=== PATIENT | male | born 1980 | race Caucasian/White ===

== ENCOUNTER 2016-08-12 13:48 | Emergency (ER) | payer MEDICARE, OTHER ==
[2016-08-12 15:23] LABS: HEMOGLOBIN 16.4 gm/dl (14.0-17.5); RED BLOOD COUNT 5.35 M/UL (4.20-5.50); WHITE BLOOD COUNT 10.8 K/UL (4.5-11.0)
[2016-08-12 15:50] LABS: BUN/CREATININE RATIO 10 (0-10)
== END 2016-08-12 18:30 | disposition home or self-care (01) ==
LOC: ER1 13:48
PROVIDERS: Physician Assistant
DX: R10.11 Right upper quadrant pain (principal); R11.2 Nausea with vomiting, unspecified; K21.0 Gastro-esophageal reflux disease with esophagitis; Z88.0 Allergy status to penicillin
CPT/HCPCS: 36415; 76705; 80053; 81001; 82150; 83690; 85025; 96361; 96374; 96375; 99284; J2270; J2405; J7050; Q9962

== ENCOUNTER 2016-08-13 07:30 | Inpatient (IN) | payer MEDICARE, OTHER ==
[~2016-08-13] VITALS: Ht 188 cm; Wt 95.3 kg
[2016-08-13 08:24] LABS: HEMOGLOBIN 15.6 gm/dl (14.0-17.5); RED BLOOD COUNT 5.1 M/UL (4.20-5.50); WHITE BLOOD COUNT 12.2 K/UL (4.5-11.0)
[2016-08-13 08:43] LABS: BUN/CREATININE RATIO 6 (0-10)
[2016-08-14 04:39] LABS: HEMOGLOBIN 14.5 gm/dl (14.0-17.5); RED BLOOD COUNT 4.71 M/UL (4.20-5.50); WHITE BLOOD COUNT 9.3 K/UL (4.5-11.0)
[2016-08-14 04:55] LABS: BUN/CREATININE RATIO 6 (0-10)
[2016-08-15] MEDS ORDERED: NORCO 5-325 TA1 EACH PO (12:26)
== END 2016-08-15 14:47 | disposition home or self-care (01) | DRG 419 ==
LOC: ER1 07:30 → ZEROF 16:23 → M/S 20:42
PROVIDERS: Physician Assistant; ADMIT Surgery
DX: K80.42 Calculus of bile duct with acute cholecystitis without obstruction (principal); Z88.0 Allergy status to penicillin; Z88.8 Allergy status to other drugs, medicaments and biological substances; F17.220 Nicotine dependence, chewing tobacco, uncomplicated; Z83.3 Family history of diabetes mellitus
CPT/HCPCS: 36415; 47531; 76705; 78227; 80053; 80076; 81001; 82150; 83690; 85025; 85027; 96361; 96374; 96375; 96376; 99284; A9537; J1200; J1650; J1885; J1956; J2250; J2270; J2405; J2710; J3010; J7050; J7120; Q9962

== ENCOUNTER → 2016-08-31 | Day surgery (SDC) | payer MEDICARE, OTHER ==
[~2016-08-31] MED LIST: NORCO 5-325 TA1 EACH PO
== END | disposition home or self-care (01) ==
LOC: OR 06:09
PROVIDERS: Internal Medicine Gastroenterology
PROC: 0FJD8ZZ Inspection of Pancreatic Duct, Via Natural or Artificial Opening Endoscopic (ICD-10-PCS; principal; 2016-08-31 09:45)
DX: K80.50 Calculus of bile duct without cholangitis or cholecystitis without obstruction (principal); E66.3 Overweight; Z88.0 Allergy status to penicillin; Z79.899 Other long term (current) drug therapy; Z90.49 Acquired absence of other specified parts of digestive tract; Z87.19 Personal history of other diseases of the digestive system
CPT/HCPCS: 36415; 74330; 80076; 82150; 83690; 85610; C2617; J1610; J2250; J7030; J7050; J7120; Q9962

== ENCOUNTER 2020-06-15 12:32 | Emergency (ER) | payer MEDICARE, OTHER ==
[2020-06-15 13:18] LABS: HEMOGLOBIN 16.7 gm/dl (14.0-17.5); RED BLOOD COUNT 5.29 M/UL (4.20-5.50); WHITE BLOOD COUNT 7.7 K/UL (4.5-11.0)
[2020-06-15 13:54] LABS: BUN/CREATININE RATIO 10 (0-10)
[2020-06-15] MEDS ORDERED: VISTARIL 50 MG50 MG PO (16:45)
[2020-06-15] MEDS ORDERED: PROTONIX40 MG PO (16:45)
== END 2020-06-15 16:50 | disposition home or self-care (01) ==
LOC: ER1 12:32
DX: K21.9 Gastro-esophageal reflux disease without esophagitis (principal); F41.9 Anxiety disorder, unspecified; Z90.49 Acquired absence of other specified parts of digestive tract; Z90.89 Acquired absence of other organs; F17.210 Nicotine dependence, cigarettes, uncomplicated; Z88.0 Allergy status to penicillin
CPT/HCPCS: 71045; 80053; 82550; 82553; 83690; 83874; 84484; 85025; 93005; 96374; 96375; 99285; C9113; J2060